=== PATIENT | female | born 1965 | race Caucasian/White ===

== ENCOUNTER → 2016-03-22 | Outpatient (CLI) | payer OTHER ==
[2013-10-28 18:10] VITALS: BP 126/81
[~2016-03-22] MED LIST: BACL10TA PO; CONTRAST GIVEN MC PRN; DULO30CA2 PO; IOHEXOL 300 MG/ML 50 ML VIAL. IT ONE; LIDOCAINE 1% Multi-Dose 20 ML VIAL. ID ONE; LORA0.5T PO; QUET25TA5 PO; VENL37.5 PO; ZOLP10TA4 PO
--- NOTE | 2016-03-22 15:33 | KCIC ---
PROCEDURE Fluoroscopic guided lumbar puncture for CT myelography; cervical spine CT myelogram. HISTORY Neck pain and upper extremity numbness. TECHNIQUE The risks of the procedure were discussed with the patient and written and verbal consent was obtained. A time-out was performed. Fluoroscopic imaging of the lumbar spine was performed and a site overlying L3-L4 was selected for needle entry. The skin overlying this region was sterilely prepped, draped and infiltrated with 1 percent lidocaine. A 25 gauge spinal needle was then advanced into the thecal sac and appropriate needle tip positioning was confirmed with spontaneous yield of cerebral spinal fluid within the needle hub. 10 cc Omnipaque 300 intrathecal contrast was injected. The needle was removed and a sterile bandage was placed at the needle entry site. The contrast column was then advanced to the cervical level and prone, 30 degree and 60 degree oblique and lateral images of the cervical spine were obtained. Five fluoroscopic images were obtained for a total fluoroscopy time is 53 seconds. The patient was then transferred to the CT suite and the post injection CT portion of the exam was performed. The patient tolerated the procedure without difficulty and was discharged in stable condition. One or more of the following individualized dose reduction techniques were utilized for this examination: 1. Automated exposure control; 2. Adjustment of the mA and/or kV according to patient size; 3. Use of iterative reconstruction technique. COMPARISON None. FINDINGS There is mild cervical kyphosis. There is no significant listhesis. The vertebral bodies are normal in height. There is degenerative endplate remodeling with disc space narrowing predominately at C5-C6, and to a lesser extent, C4-C5 and C6-C7. There is deformation of the spinal cord at multiple levels due to disc bulges and protrusions, described in detail below. There is a suspected hemangioma within the anterior aspect of C4. No suspicious lytic or sclerotic osseous lesion is seen. There is a small amount of linear contrast tracking within the anterior median fissure of the cervical cord at C4-C5 through the upper thoracic levels. This is likely due to a component of myelomalacia. At C2-C3, there is a shallow posterior central disc protrusion which effaces the ventral thecal sac. There is mild left facet arthropathy. There is no stenosis. At C3-C4, there is a diffuse disc bulge and endplate remodeling. There is bilateral uncovertebral arthropathy. There is mild right and minimal left foraminal stenosis. There is flattening of the ventral aspect of the spinal cord with mild central canal stenosis measuring 8.5 mm in anterior-posterior dimension. At C4-C5, there is a posterior disc protrusion and osteophyte complex superimposed on a disc bulge and endplate osteophytosis. There is mild right facet arthropathy. There is uncovertebral arthropathy. There is mild to moderate bilateral foraminal stenosis. There is deformation of the ventral aspect of the spinal cord and mild to moderate central canal stenosis measuring 7.4 mm in anterior-posterior dimension. At C5-C6, there is a broad-based left paracentral to extra foraminal disc protrusion and osteophyte complex superimposed on a disc bulge and endplate osteophytosis. There is uncovertebral arthropathy. There is mild to moderate right and moderate to severe left foraminal stenosis. There is deformation of the left greater than right ventral aspect of the spinal cord with moderate central canal stenosis measuring 6.9 mm in anterior-posterior dimension. At C6-C7, there is a right paracentral disc protrusion and osteophyte complex superimposed on a disc bulge and endplate remodeling. There is uncovertebral arthropathy. There is mild left foraminal stenosis. There is deformation of the right ventral aspect of the spinal cord and mild to moderate central canal stenosis measuring 7.1 mm in anterior-posterior dimension. IMPRESSION 1. Multilevel degenerative change throughout the cervical spine, described in detail above. These findings results in mild right and minimal left foraminal and mild central canal stenosis at C3-C4, mild to moderate bilateral foraminal and central canal stenosis at C4-C5, mild to moderate right and moderate to severe left foraminal and moderate central canal stenosis at C5-C6 and mild left foraminal and mild to moderate central canal stenosis at C6-C7. 2. Deformation of the spinal cord at multiple levels due to aforementioned degenerative changes and central canal stenosis. There is trace contrast tracking within the anterior median fissure likely due to cord myelomalacia at multiple levels. 3. Mild cervical kyphosis. Electronically signed by: Lisette Mcgee (Mar 22, 2016 15:32:13)
== END | disposition home or self-care (01) ==
LOC: KCIC 13:08
PROVIDERS: ATTEND Neurological Surgery
DX: M54.12 Radiculopathy, cervical region (principal); M47.892 Other spondylosis, cervical region; M40.292 Other kyphosis, cervical region; M48.02 Spinal stenosis, cervical region; M50.222 Other cervical disc displacement at C5-C6 level; M25.78 Osteophyte, vertebrae; M12.88 Other specific arthropathies, not elsewhere classified, other specified site
CPT/HCPCS: 72126; 72240; Q9967

== ENCOUNTER → 2018-03-22 | Day surgery (SDC) | payer OTHER ==
[~2018-03-22] MED LIST changes: -CONTRAST GIVEN MC PRN; +GLYCOPYRROLATE 1 MG/5 ML VIAL. ONE; +HYDROmorphone 2 MG/ML VIAL IV PRN; -IOHEXOL 300 MG/ML 50 ML VIAL. IT ONE; +IV RINGERS,LACTATED 1000ML 1,000 ML IV SCH; -LIDOCAINE 1% Multi-Dose 20 ML VIAL. ID ONE; +LIDOCAINE 1% PF 2 ML VIAL. ID PRN; +MIDAZOLAM HCL/PF 2 MG/2 ML VIAL. IV PRN; +MORPHINE SULFATE 4 MG/ML VIAL. IV PRN; +ONDANSETRON PF 4 MG/2 ML VIAL. IM ONE; +ONDANSETRON PF 4 MG/2 ML VIAL. IV PRN; +PROCHLORPERAZINE 10 MG/2 ML VIAL. IV PRN; +PROPOFOL 20 ML IV ONE; +TOPI200T25 PO; +ePHEDrine PF IN SALINE 50 MG/5 ML DISP.SYRIN IV ONE; +fentaNYL PF VIAL 100 MCG/2 ML VIAL IV PRN
[2018-03-22 13:29] VITALS: BP 109/68
--- NOTE | 2018-03-22 21:53 | CONS ---
DATE OF CONSULTATION: 03/22/2018 GASTROENTEROLOGY CONSULTATION REASON FOR CONSULTATION: Colorectal screening and family history of colon cancer. HISTORY OF PRESENT ILLNESS: This is a 52-year-old female with a past medical history which is significant for , status post cholecystectomy, hysterectomy and tubal ligation, seen for a screening colon exam. Mother was diagnosed with colon cancer 4 months ago and she is here for her first exam. No change in bowel habits. No diarrhea or constipation. No bleeding and no additional complaints. PAST MEDICAL HISTORY: Anxiety, depression and sleep apnea. ALLERGIES: HYDROCODONE AND LAMOTRIGINE. MEDICATIONS: Include Cymbalta, lorazepam, Topamax and zolpidem. FAMILY AND SOCIAL HISTORY: Significant for colon cancer with mother and diabetes and breast cancer with her grandmother. REVIEW OF SYSTEMS: As per records. PHYSICAL EXAMINATION: GENERAL: Reveals a well-nourished, well-developed female, alert and cooperative, in no acute distress. VITAL SIGNS: Temperature 98.8, pulse 104 and respiratory rate 20. HEENT EXAMINATION: Normocephalic and atraumatic. Pupils and extraocular muscles are not tested. Sclerae anicteric. NECK: Supple. LUNGS: Clear. CARDIOVASCULAR EXAMINATION: Reveals an S1, S2, without S3, S4 or appreciable murmur. ABDOMEN: Examination reveals a soft abdomen. Normal bowel sounds, without appreciable hepatosplenomegaly. EXTREMITIES: Examination reveals no cyanosis, clubbing or edema. IMPRESSION AND PLAN: Colorectal screening is warranted at this time with a family history of colon cancer. Risks and benefits of the procedure, including the risk of hemorrhage or perforation requiring operation have been discussed with the patient who is willing to proceed. ANGELA JULIEN MD DR: BRENDA/katalina JOB#: [id number] / [id number]
== END | disposition home or self-care (01) ==
LOC: ENDOS 10:51
PROVIDERS: ATTEND Internal Medicine Gastroenterology
DX: Z12.11 Encounter for screening for malignant neoplasm of colon (principal); K64.0 First degree hemorrhoids; F32.9 Major depressive disorder, single episode, unspecified; F41.9 Anxiety disorder, unspecified; G47.30 Sleep apnea, unspecified; Z80.0 Family history of malignant neoplasm of digestive organs; Z90.49 Acquired absence of other specified parts of digestive tract; Z98.890 Other specified postprocedural states; Z90.710 Acquired absence of both cervix and uterus; Z98.51 Tubal ligation status; Z88.6 Allergy status to analgesic agent; Z88.8 Allergy status to other drugs, medicaments and biological substances; Z79.899 Other long term (current) drug therapy; Z83.3 Family history of diabetes mellitus
CPT/HCPCS: 45378; J2405; J2704; J3490

== ENCOUNTER → 2018-12-27 | Outpatient (CLI) | payer OTHER ==
[2018-03-22 13:29] VITALS: BP 109/68
[~2018-12-27] MED LIST changes: +0.9 % SODIUM CHLORIDE 10 ML DISP.SYRIN. ID ONE; +GADOTERATE 5 MMOL/10ML VIAL. INT ART ONE; -GLYCOPYRROLATE 1 MG/5 ML VIAL. ONE; -HYDROmorphone 2 MG/ML VIAL IV PRN; +IOHEXOL 300 MG/ML 50 ML VIAL. INT ART ONE; -IV RINGERS,LACTATED 1000ML 1,000 ML IV SCH; +LIDOCAINE 1% Multi-Dose 20 ML VIAL. ID ONE; -LIDOCAINE 1% PF 2 ML VIAL. ID PRN; -MIDAZOLAM HCL/PF 2 MG/2 ML VIAL. IV PRN; -MORPHINE SULFATE 4 MG/ML VIAL. IV PRN; -ONDANSETRON PF 4 MG/2 ML VIAL. IM ONE; -ONDANSETRON PF 4 MG/2 ML VIAL. IV PRN; -PROCHLORPERAZINE 10 MG/2 ML VIAL. IV PRN; -PROPOFOL 20 ML IV ONE; -ePHEDrine PF IN SALINE 50 MG/5 ML DISP.SYRIN IV ONE; -fentaNYL PF VIAL 100 MCG/2 ML VIAL IV PRN
--- NOTE | 2018-12-27 13:23 | KCIC ---
MRI arthrogram of the left wrist HISTORY: Ganglion cyst of the dorsum of left wrist. Pain for 20 years, worse in the last 6 months. Evaluate TFCC tear. TECHNIQUE: Routine multiplanar sequences are obtained after intra-articular contrast injection. FINDINGS: Mild/moderate motion degradation on the exam. Triangular fibrocartilage appears intact. Extensor carpi ulnaris tendon grossly intact. Other extensor compartments appear to be intact. Flexor tendons are intact. Median nerve unremarkable. No definite scapholunate or lunotriquetral ligament tear is seen. Note that contrast did extend into the midcarpal compartment during a radiocarpal injection, and on the images this pathway may have been around the lateral scaphoid bone. Mild dorsal tilt of the lunate bone. No evidence of acute fracture. No aggressive bone destruction. Mild cystic-type change identified within the capitate, hamate and trapezoid bones. No aggressive bone destruction. No acute fracture. IMPRESSION: 1. No evidence of TFCC tear. 2. Contrast identified within the mid carpal compartment following radiocarpal injection. No evidence of communicating scapholunate or lunotriquetral ligament tear. The communication of contrast may be via a pathway around the lateral scaphoid, although a small occult scapholunate ligament tear or perforation could still be considered. Note there is mild dorsal tilt of the lunate bone. 3. Mild marrow heterogeneity within the distal carpal bones, likely degenerative or due to incidental carpal cysts. Electronically signed by: Charles Thompson MD (12/27/2018 1:20 PM) [id number]
--- NOTE | 2018-12-28 14:50 | KCIC ---
PROCEDURE Left?wrist injection using fluoroscopic guidance, prior to MR. HISTORY: Pain TECHNIQUE The procedure was explained to the patient as were potential risks, including among others infection, bleeding or allergic reaction. All questions were answered. Informed written consent was obtained. The wrist was prepped and draped in the usual sterile manner. Following administration of local anesthetic with 1% lidocaine , a 25 gauge needle was advanced into the radiocarpal space. Following negative aspiration, 2 cc of a solution of 5cc Omnipaque-300 contrast, 5 cc 1% lidocaine, 10 cc saline, and 0.1 cc gadolinium was injected without difficulty during dynamic digital subtraction imaging. The needle was removed. Additional post exercise images were obtained. There was good hemostasis at the injection site. The patient left in stable condition without immediate complication. The patient was given postprocedural instructions, and instructed to contact us or the ER if there are any complications. FLUOROSCOPY TIME: 2 minutes 6 seconds 3 images are obtained. FINDINGS: Contrast did opacify the mid carpal compartment after the radiocarpal injection. It is somewhat unclear based on the DSA images and the spot images whether this occurred through the scapholunate ligament. Radiographs and MR procedure do not demonstrate a clear-cut persistent defect across scapholunate ligament, but a small tear or asymptomatic perforation is possible. Electronically signed by: Charles Thompson MD (12/28/2018 2:47 PM) [id number]
== END ==
LOC: KCIC 09:57
PROVIDERS: ATTEND Orthopaedic Surgery
DX: M67.432 Ganglion, left wrist (principal)
CPT/HCPCS: 25246; 73115; 73222; A9575; Q9967